=== PATIENT | male | born 1960 | race Caucasian/White ===

== ENCOUNTER 2017-11-25 17:10 | Inpatient (IN) | payer MEDICAID ==
[~2017-11-25] VITALS: Ht 180.3 cm; Wt 93.0 kg
[~2017-11-25 17:10] MED LIST: ALBU6.7H INH; AMIT10TA6 PO; ASPI-107 PO; BECL8.7A7 INH; CYCL-1 PO; DOCU-28 PO; GABA300C PO; METO-384 PO; OMEP20CA10 PO; TIZA4CAP6 PO
[2017-11-25] MEDS ORDERED: HYDROcodone/acetaminophen 5mg/325mg tablet PO ONE (20:30)
[2017-11-25] MEDS ORDERED: temazepam 15mg capsule PO PRN (21:00)
[2017-11-25 22:30] LABS: BASOPHILS % (AUTO) 0.2 % (0-1); EOSINOPHILS # (AUTO) 0.2 X10'3 (0-0.9); EOSINOPHILS % (AUTO) 2.1 % (0-6); HEMATOCRIT 44.4 % (42.0-52.0); HEMOGLOBIN 14.9 g/dl (14.0-17.9); LYMPHOCYTES # (AUTO) 1.4 X10'3 (1.1-4.8); LYMPHOCYTES % (AUTO) 15.2 % (21-51); MEAN CORPUSCULAR HEMOGLOBIN 31.1 PG (27.0-31.0); MEAN CORPUSCULAR HGB CONC 33.6 % (33.0-36.5); MEAN CORPUSCULAR VOLUME 92.6 FL (78-98); MEAN PLATELET VOLUME 7.9 FL (7.4-10.4); MONOCYTES # (AUTO) 0.7 X10'3 (0-0.9); MONOCYTES % (AUTO) 7.6 % (2-12); NEUTROPHILS # (AUTO) 6.8 X10'3 (1.8-7.7); NEUTROPHILS % (AUTO) 74.9 % (42-75); PLATELET COUNT 260 X10'3 (140-440); RED CELL DISTRIBUTION WIDTH 15.4 % (11.5-14.5); WHITE BLOOD COUNT 9.1 X10'3 (4.5-11.0)
[2017-11-25] MEDS ORDERED: RIVA10TA PO (22:31)
[2017-11-25 22:43] LABS: INR 0.9 INR; PARTIAL THROMBOPLASTIN TIME 27 SECONDS (22-32); PROTHROMBIN TIME 9.8 SECONDS (9.0-12.0)
[2017-11-25 22:47] LABS: ALANINE AMINOTRANSFERASE 29 U/L (12-78); ALBUMIN 3.8 G/DL (3.4-5.0); ALKALINE PHOSPHATASE 70 IU/L (46-116); ANION GAP 10 (8-16); ASPARTATE AMINO TRANSFERASE 35 U/L (10-37); BILIRUBIN,TOTAL 0.7 MG/DL (0.1-1.0); BLOOD UREA NITROGEN 9 MG/DL (7-18); BUN/CREATININE RATIO 8.5 (5.4-32.0); CALCIUM 7.6 MG/DL (8.5-10.1); CHLORIDE 104 MMOL/L (99-107); CREATININE 1.06 MG/DL (0.60-1.10); GLUCOSE 95 MG/DL (70-104); POTASSIUM 3.8 MMOL/L (3.5-5.1); SODIUM 140 MMOL/L (135-145); TOTAL CARBON DIOXIDE 26.1 MMOL/L (24-32); TOTAL PROTEIN 7.6 G/DL (6.4-8.2); eGFR 73 ML/MIN
[2017-11-25] MEDS ORDERED: iohexol 300mg/ml 100ml inj. ONE (23:01)
[2017-11-25] MEDS ORDERED: acetaminophen 650mg rectal suppository RC PRN (23:10)
[2017-11-25] MEDS ORDERED: mag hydrox/Alum hydrox/simeth 30ml oral suspension PO PRN (23:10)
[2017-11-25] MEDS ORDERED: acetaminophen 325mg tablet PO PRN ×2 (23:10)
[2017-11-25] MEDS ORDERED: ondansetron/PF 4mg/2ml inj IV PRN (23:10)
[2017-11-25] MEDS ORDERED: morphine 2 MG/ML inj. syringe IV PRN ×2 (23:10)
[2017-11-25] MEDS ORDERED: diphenhydrAMINE 25mg capsule PO PRN (23:10)
[2017-11-25] MEDS ORDERED: HYDROmorphone 1 mg/ml syringe IV PRN (23:10)
[2017-11-25] MEDS ORDERED: diphenhydrAMINE 50 mg/ml inj IV PRN (23:10)
[2017-11-25] MEDS ORDERED: metoclopramide 5 mg/ml inj IV PRN (23:10)
[2017-11-25] MEDS ORDERED: HYDROcodone/acetaminophen 5mg/325mg tablet PO PRN (23:10)
[2017-11-25] MEDS: nicotine 21mg patch - 24 hr TD SCH (23:10)
[2017-11-25] MEDS ORDERED: magnesium hydroxide 30ml (MOM) UD suspension PO PRN (23:10)
[2017-11-25] MEDS ORDERED: bisacodyl 10mg suppository rectal RC PRN (23:10)
[2017-11-25] MEDS ORDERED: nicotine 14mg patch - 24hr TD ONE (23:35)
[2017-11-25] MEDS: gabapentin 300mg capsule PO SCH (23:51)
[2017-11-25] MEDS: normal saline 1000ml 1,000 ML IV SCH (23:52)
[2017-11-25] MEDS: HYDROmorphone 1 mg/ml syringe IV PRN (23:52)
[2017-11-25 23:53] LABS: MAGNESIUM 2.1 MG/DL (1.5-2.4)
[2017-11-26 00:35] LABS: URINE AMPHETAMINE SCREEN NEGATIVE (Neg); URINE BARBITUATE SCREEN NEGATIVE (Neg); URINE BENZODIAZEPINES SCREEN NEGATIVE (Neg); URINE CANNABINOID SCREEN POSITIVE (Neg); URINE COCAINE SCREEN NEGATIVE (Neg); URINE METHADONE SCREEN NEGATIVE (Neg); URINE OPIATE SCREEN POSITIVE (Neg); URINE PHENCYCLIDINE SCREEN NEGATIVE (Neg)
[2017-11-26] MEDS: albuterol 2.5 MG/3 ML nebule NEB SCH ×4 (02:45→20:47)
[2017-11-26] MEDS: HYDROmorphone 1 mg/ml syringe IV PRN (05:40)
[2017-11-26 07:09] LABS: BASOPHILS % (AUTO) 0.2 % (0-1); EOSINOPHILS # (AUTO) 0.3 X10'3 (0-0.9); EOSINOPHILS % (AUTO) 3.2 % (0-6); HEMATOCRIT 37.7 % (42.0-52.0); HEMOGLOBIN 12.8 g/dl (14.0-17.9); LYMPHOCYTES # (AUTO) 1.2 X10'3 (1.1-4.8); LYMPHOCYTES % (AUTO) 14.3 % (21-51); MEAN CORPUSCULAR HEMOGLOBIN 31.7 PG (27.0-31.0); MEAN CORPUSCULAR HGB CONC 34.1 % (33.0-36.5); MEAN CORPUSCULAR VOLUME 93.2 FL (78-98); MEAN PLATELET VOLUME 7.5 FL (7.4-10.4); MONOCYTES # (AUTO) 0.7 X10'3 (0-0.9); MONOCYTES % (AUTO) 9.1 % (2-12); NEUTROPHILS % (AUTO) 73.2 % (42-75); PLATELET COUNT 247 X10'3 (140-440); RED BLOOD COUNT 4.04 X10'6 (4.70-6.10); RED CELL DISTRIBUTION WIDTH 15.4 % (11.5-14.5); WHITE BLOOD COUNT 8.2 X10'3 (4.5-11.0)
[2017-11-26 07:37] LABS: ALANINE AMINOTRANSFERASE 25 U/L (12-78); ALBUMIN 3.1 G/DL (3.4-5.0); ALBUMIN/GLOBULIN RATIO 0.9 (1.1-1.5); ALKALINE PHOSPHATASE 59 IU/L (46-116); ANION GAP 7 (8-16); ASPARTATE AMINO TRANSFERASE 27 U/L (10-37); BILIRUBIN,TOTAL 0.7 MG/DL (0.1-1.0); BLOOD UREA NITROGEN 7 MG/DL (7-18); BUN/CREATININE RATIO 6.9 (5.4-32.0); CHLORIDE 105 MMOL/L (99-107); CREATININE 1.02 MG/DL (0.60-1.10); GLUCOSE 94 MG/DL (70-104); POTASSIUM 3.8 MMOL/L (3.5-5.1); SODIUM 141 MMOL/L (135-145); TOTAL CARBON DIOXIDE 28.9 MMOL/L (24-32); TOTAL PROTEIN 6.5 G/DL (6.4-8.2); eGFR 76 ML/MIN
[2017-11-26] MEDS: BUDESONIDE 0.25 MG/2 ML AMPUL.NEB IH SCH ×2 (08:22→20:47)
[2017-11-26] MEDS: nicotine 21mg patch - 24 hr TD SCH (09:49)
[2017-11-26] MEDS: pantoprazole 40mg Tablet.DR PO SCH (09:50)
[2017-11-26] MEDS: cyclobenzaprine 10mg tablet PO PRN ×2 (09:50→20:00)
[2017-11-26] MEDS: docusate sod 100mg capsule PO SCH ×2 (09:50→20:00)
[2017-11-26] MEDS: metoprolol succinate 25mg (24-HOUR) SR. Tablet PO SCH (09:50)
[2017-11-26] MEDS: gabapentin 300mg capsule PO SCH ×2 (09:51→09:52)
[2017-11-26] MEDS: normal saline 1000ml 1,000 ML IV SCH ×2 (10:00→20:00)
[2017-11-26] MEDS: HYDROcodone/acetaminophen 10/325mg tab PO PRN ×3 (11:29→20:00)
[2017-11-26 15:30] VITALS: BP 138/89
[2017-11-26 18:00] VITALS: BP 154/99
[2017-11-26] MEDS: amitriptyline 10mg tablet PO SCH (20:00)
[2017-11-26 22:00] VITALS: BP 127/85
[2017-11-27] MEDS: albuterol 2.5 MG/3 ML nebule NEB SCH ×4 (03:02→20:04)
[2017-11-27] MEDS: HYDROcodone/acetaminophen 10/325mg tab PO PRN ×5 (03:17→21:36)
[2017-11-27] MEDS: gabapentin 300mg capsule PO SCH ×3 (03:17→17:18)
[2017-11-27 05:00] VITALS: BP 123/62
[2017-11-27 05:17] LABS: BASOPHILS % (AUTO) 0.1 % (0-1); EOSINOPHILS # (AUTO) 0.3 X10'3 (0-0.9); EOSINOPHILS % (AUTO) 3.5 % (0-6); HEMATOCRIT 34.5 % (42.0-52.0); LYMPHOCYTES # (AUTO) 1.4 X10'3 (1.1-4.8); LYMPHOCYTES % (AUTO) 15.8 % (21-51); MEAN CORPUSCULAR HEMOGLOBIN 31.7 PG (27.0-31.0); MEAN CORPUSCULAR HGB CONC 34.9 % (33.0-36.5); MEAN CORPUSCULAR VOLUME 90.8 FL (78-98); MEAN PLATELET VOLUME 7.4 FL (7.4-10.4); MONOCYTES # (AUTO) 0.7 X10'3 (0-0.9); MONOCYTES % (AUTO) 8.3 % (2-12); NEUTROPHILS # (AUTO) 6.3 X10'3 (1.8-7.7); NEUTROPHILS % (AUTO) 72.3 % (42-75); PLATELET COUNT 234 X10'3 (140-440); RED BLOOD COUNT 3.79 X10'6 (4.70-6.10); RED CELL DISTRIBUTION WIDTH 15.2 % (11.5-14.5); WHITE BLOOD COUNT 8.7 X10'3 (4.5-11.0)
[2017-11-27] MEDS: normal saline 1000ml 1,000 ML IV SCH ×2 (05:29→15:07)
[2017-11-27 06:05] LABS: ALANINE AMINOTRANSFERASE 28 U/L (12-78); ALBUMIN 2.8 G/DL (3.4-5.0); ALBUMIN/GLOBULIN RATIO 0.9 (1.1-1.5); ALKALINE PHOSPHATASE 52 IU/L (46-116); ANION GAP 10 (8-16); ASPARTATE AMINO TRANSFERASE 24 U/L (10-37); BILIRUBIN,TOTAL 0.4 MG/DL (0.1-1.0); BLOOD UREA NITROGEN 7 MG/DL (7-18); BUN/CREATININE RATIO 7.7 (5.4-32.0); CALCIUM 6.7 MG/DL (8.5-10.1); CHLORIDE 104 MMOL/L (99-107); CREATININE 0.91 MG/DL (0.60-1.10); GLUCOSE 102 MG/DL (70-104); POTASSIUM 3.3 MMOL/L (3.5-5.1); SODIUM 141 MMOL/L (135-145); TOTAL CARBON DIOXIDE 27.3 MMOL/L (24-32); TOTAL PROTEIN 5.9 G/DL (6.4-8.2); eGFR 86 ML/MIN
[2017-11-27] MEDS: docusate sod 100mg capsule PO SCH ×2 (07:36→21:36)
[2017-11-27] MEDS: pantoprazole 40mg Tablet.DR PO SCH (07:36)
[2017-11-27] MEDS: metoprolol succinate 25mg (24-HOUR) SR. Tablet PO SCH (07:36)
[2017-11-27] MEDS: nicotine 21mg patch - 24 hr TD SCH (07:37)
[2017-11-27] MEDS: BUDESONIDE 0.25 MG/2 ML AMPUL.NEB IH SCH ×2 (08:31→20:05)
[2017-11-27 10:00] VITALS: BP 141/88
[2017-11-27] MEDS: baclofen 10mg tablet PO PRN ×2 (14:10→18:47)
[2017-11-27 18:00] VITALS: BP 142/91
[2017-11-27] MEDS: amitriptyline 10mg tablet PO SCH (21:36)
[2017-11-27] MEDS: cyclobenzaprine 10mg tablet PO PRN (21:36)
[2017-11-27 22:00] VITALS: BP 111/72
[2017-11-28] MEDS: normal saline 1000ml 1,000 ML IV SCH ×2 (00:16→11:07)
[2017-11-28] MEDS: gabapentin 300mg capsule PO SCH ×2 (00:16→08:43)
[2017-11-28] MEDS: albuterol 2.5 MG/3 ML nebule NEB SCH ×2 (02:11→07:48)
[2017-11-28 06:00] VITALS: BP 133/86
[2017-11-28 06:59] LABS: BASOPHILS % (AUTO) 0.1 % (0-1); EOSINOPHILS # (AUTO) 0.3 X10'3 (0-0.9); EOSINOPHILS % (AUTO) 4.5 % (0-6); HEMATOCRIT 36.3 % (42.0-52.0); HEMOGLOBIN 12.5 g/dl (14.0-17.9); LYMPHOCYTES # (AUTO) 1.5 X10'3 (1.1-4.8); LYMPHOCYTES % (AUTO) 21.3 % (21-51); MEAN CORPUSCULAR HEMOGLOBIN 31.8 PG (27.0-31.0); MEAN CORPUSCULAR HGB CONC 34.4 % (33.0-36.5); MEAN CORPUSCULAR VOLUME 92.4 FL (78-98); MEAN PLATELET VOLUME 7.5 FL (7.4-10.4); MONOCYTES # (AUTO) 0.5 X10'3 (0-0.9); MONOCYTES % (AUTO) 7.8 % (2-12); NEUTROPHILS # (AUTO) 4.6 X10'3 (1.8-7.7); NEUTROPHILS % (AUTO) 66.3 % (42-75); PLATELET COUNT 270 X10'3 (140-440); RED BLOOD COUNT 3.93 X10'6 (4.70-6.10); RED CELL DISTRIBUTION WIDTH 15.2 % (11.5-14.5); WHITE BLOOD COUNT 6.9 X10'3 (4.5-11.0)
[2017-11-28 07:17] LABS: ALANINE AMINOTRANSFERASE 21 U/L (12-78); ALBUMIN 2.8 G/DL (3.4-5.0); ALBUMIN/GLOBULIN RATIO 0.8 (1.1-1.5); ALKALINE PHOSPHATASE 47 IU/L (46-116); ANION GAP 7 (8-16); ASPARTATE AMINO TRANSFERASE 18 U/L (10-37); BILIRUBIN,TOTAL 0.4 MG/DL (0.1-1.0); BLOOD UREA NITROGEN 9 MG/DL (7-18); BUN/CREATININE RATIO 9.9 (5.4-32.0); CALCIUM 7.5 MG/DL (8.5-10.1); CHLORIDE 103 MMOL/L (99-107); CREATININE 0.91 MG/DL (0.60-1.10); GLUCOSE 91 MG/DL (70-104); POTASSIUM 3.7 MMOL/L (3.5-5.1); SODIUM 141 MMOL/L (135-145); TOTAL CARBON DIOXIDE 31.1 MMOL/L (24-32); TOTAL PROTEIN 6.1 G/DL (6.4-8.2); eGFR 86 ML/MIN
[2017-11-28] MEDS: BUDESONIDE 0.25 MG/2 ML AMPUL.NEB IH SCH (07:48)
[2017-11-28] MEDS: pantoprazole 40mg Tablet.DR PO SCH (08:43)
[2017-11-28] MEDS: nicotine 21mg patch - 24 hr TD SCH (08:43)
[2017-11-28] MEDS: cyclobenzaprine 10mg tablet PO PRN (08:43)
[2017-11-28] MEDS: docusate sod 100mg capsule PO SCH (08:43)
[2017-11-28] MEDS: metoprolol succinate 25mg (24-HOUR) SR. Tablet PO SCH (08:43)
[2017-11-28] MEDS: HYDROcodone/acetaminophen 10/325mg tab PO PRN ×2 (08:45→12:54)
[2017-11-28] MEDS ORDERED: COL100C PO (10:30)
[2017-11-28] MEDS ORDERED: BAC10T PO (10:30)
[2017-11-28] MEDS ORDERED: HYDR-3972 PO (10:30)
== END 2017-11-28 13:15 | disposition home or self-care (01) | DRG 135 ==
LOC: ER 17:11 → ED HOLD 23:07 → ORTHO 4S 11-26 15:33
PROVIDERS: ADMIT Family Medicine; ATTEND Internal Medicine
PROC: BW251ZZ Computerized Tomography (CT Scan) of Chest, Abdomen and Pelvis using Low Osmolar Contrast (ICD-10-PCS; principal; 2017-11-25)
DX: S27.1XXA Traumatic hemothorax, initial encounter (principal); S22.079A Unspecified fracture of T9-T10 vertebra, initial encounter for closed fracture; S09.90XA Unspecified injury of head, initial encounter; G62.9 Polyneuropathy, unspecified; I48.0 Paroxysmal atrial fibrillation; S22.41XA Multiple fractures of ribs, right side, initial encounter for closed fracture; F12.10 Cannabis abuse, uncomplicated; G47.00 Insomnia, unspecified; Y04.2XXA Assault by strike against or bumped into by another person, initial encounter; I10 Essential (primary) hypertension; I25.10 Atherosclerotic heart disease of native coronary artery without angina pectoris; M54.5 Low back pain; S10.93XA Contusion of unspecified part of neck, initial encounter; G89.29 Other chronic pain; T79.7XXA Traumatic subcutaneous emphysema, initial encounter; Z79.01 Long term (current) use of anticoagulants; Z79.82 Long term (current) use of aspirin; Z87.891 Personal history of nicotine dependence; Z79.899 Other long term (current) drug therapy; Y93.89 Activity, other specified; Y92.89 Other specified places as the place of occurrence of the external cause; Y99.8 Other external cause status
CPT/HCPCS: 36415; 70450; 71045; 71046; 71260; 72100; 72125; 73130; 74177; 80053; 80305; 83735; 83880; 85025; 85610; 85730; 86885; 86900; 86901; 87070; 94640; 94760; 99285; J1170; J2405; J7030; Q9967

== ENCOUNTER 2019-06-30 15:46 | Emergency (ER) | payer MEDICAID ==
[~2019-06-30] VITALS: Ht 177.8 cm; Wt 81.8 kg
[~2019-06-30 15:46] MED LIST changes: -ALBU6.7H INH; +ALBU6.7H9 INH; +BAC10T PO; +COL100C PO; -DOCU-28 PO; +HYDR-3972 PO; -OMEP20CA10 PO; +OMEP20CA15 PO; +RIVA10TA PO; -TIZA4CAP6 PO
[2019-06-30 15:55] VITALS: BP 129/88
--- NOTE | 2019-06-30 16:10 | NUR ---
Seen and assessed by provider.
== END 2019-06-30 16:13 ==
LOC: ER 15:46
DX: F10.129 Alcohol abuse with intoxication, unspecified (principal); R07.9 Chest pain, unspecified; F12.90 Cannabis use, unspecified, uncomplicated; G89.29 Other chronic pain; Z98.890 Other specified postprocedural states; Z79.82 Long term (current) use of aspirin; Z79.899 Other long term (current) drug therapy; V87.7XXA Person injured in collision between other specified motor vehicles (traffic), initial encounter
CPT/HCPCS: 99283

== ENCOUNTER 2021-04-09 14:17 | Emergency (ER) | payer MEDICAID ==
[~2021-04-09] VITALS: Ht 182.9 cm; Wt 90.9 kg
[2021-04-09 15:00] VITALS: BP 163/142
[2021-04-09] MEDS ORDERED: traMADol 50MG tablet PO ONE (17:50)
[2021-04-09] MEDS ORDERED: ketorolac trometh inj. 60 MG/2 ML VIAL IM ONE (17:50)
[2021-04-09] MEDS ORDERED: TRAM50TA2 PO (18:20)
== END 2021-04-09 19:29 | disposition home or self-care (01) ==
LOC: ER 14:18
DX: F10.129 Alcohol abuse with intoxication, unspecified (principal); M54.50 Low back pain, unspecified; G89.29 Other chronic pain; F12.90 Cannabis use, unspecified, uncomplicated; Z98.890 Other specified postprocedural states; Z59.00 Homelessness unspecified; Z79.82 Long term (current) use of aspirin; Z79.899 Other long term (current) drug therapy; Y90.9 Presence of alcohol in blood, level not specified
CPT/HCPCS: 96372; 99284; J1885

== ENCOUNTER 2021-05-07 17:36 | Emergency (ER) | payer MEDICAID ==
[~2021-05-07] VITALS: Ht 180.3 cm; Wt 100.0 kg
[~2021-05-07 17:36] MED LIST changes: +TRAM50TA2 PO
[2021-05-07 17:56] VITALS: BP 111/73
== END 2021-05-07 23:25 ==
LOC: ER 17:36
DX: F10.129 Alcohol abuse with intoxication, unspecified (principal); R47.81 Slurred speech; I10 Essential (primary) hypertension; G89.29 Other chronic pain; F12.90 Cannabis use, unspecified, uncomplicated; Z98.890 Other specified postprocedural states; Z59.00 Homelessness unspecified; Z79.82 Long term (current) use of aspirin; Z79.899 Other long term (current) drug therapy; Y90.9 Presence of alcohol in blood, level not specified
CPT/HCPCS: 99283

== ENCOUNTER 2021-07-17 10:47 | Emergency (ER) | payer MEDICAID, OTHER ==
[~2021-07-17] VITALS: Ht 180.3 cm; Wt 95.5 kg
[~2021-07-17 10:47] MED LIST changes: -TRAM50TA2 PO
[2021-07-17] MEDS ORDERED: oxyCODONE IR 5mg (immed. release) tablet PO ONE (11:40)
[2021-07-17 11:46] VITALS: BP 146/106
[2021-07-17 12:01] LABS: BASOPHILS % (AUTO) 0.5 % (0-1); EOSINOPHILS # (AUTO) 0.3 X10'3 (0-0.9); HEMATOCRIT 43.1 % (42.0-52.0); HEMOGLOBIN 14.3 g/dl (14.0-17.9); LYMPHOCYTES % (AUTO) 17.1 % (21-51); MEAN CORPUSCULAR HGB CONC 33.1 g/dL (33.0-36.5); MEAN CORPUSCULAR VOLUME 90.5 FL (78-98); MONOCYTES # (AUTO) 0.7 X10'3 (0-0.9); MONOCYTES % (AUTO) 12.1 % (2-12); NEUTROPHILS % (AUTO) 65.3 % (42-75); PLATELET COUNT 262 X10'3 (140-440); RED BLOOD COUNT 4.77 X10'6 (4.70-6.10); RED CELL DISTRIBUTION WIDTH 13.9 % (11.5-14.5); WHITE BLOOD COUNT 6.1 X10'3 (4.5-11.0)
== END 2021-07-17 12:47 | disposition home or self-care (01) ==
LOC: ER 10:47 → EEVIPCON 10:47 → ER 12:47
DX: K40.90 Unilateral inguinal hernia, without obstruction or gangrene, not specified as recurrent (principal); R11.0 Nausea; I10 Essential (primary) hypertension; G89.29 Other chronic pain; F12.90 Cannabis use, unspecified, uncomplicated; Z56.0 Unemployment, unspecified; Z98.890 Other specified postprocedural states; Z79.82 Long term (current) use of aspirin; Z79.899 Other long term (current) drug therapy
CPT/HCPCS: 36415; 85025; 85651; 86140; 99283

== ENCOUNTER 2023-12-28 11:55 | Emergency (ER) | payer SELFPAY ==
[~2023-12-28] VITALS: Ht 170.2 cm; Wt 82.2 kg
[~2023-12-28 11:55] MED LIST changes: +ALBU6.7H14 INH; -ALBU6.7H9 INH
[2023-12-28 12:02] VITALS: BP 180/109; PULSE 89; RESP 16; TEMP 97; O2SAT 98
== END 2023-12-28 14:27 | disposition left against medical advice (07) ==
LOC: ER 11:56
DX: L23.7 Allergic contact dermatitis due to plants, except food (principal); L02.413 Cutaneous abscess of right upper limb; Z53.21 Procedure and treatment not carried out due to patient leaving prior to being seen by health care provider

== ENCOUNTER 2024-10-27 11:53 | Emergency (ER) | payer MEDICAID ==
[~2024-10-27] VITALS: Ht 180.3 cm; Wt 57.2 kg
[~2024-10-27 11:53] MED LIST changes: -BAC10T PO; +BACL-145 PO
[2024-10-27 12:15] VITALS: BP 160/96; PULSE 89; RESP 16; TEMP 99.2; O2SAT 96
--- NOTE | 2024-10-27 12:40 | Physician Documentation ---
History of Present Illness ~ Chief Complaint: Wound Stated Complaint: WOUNDS LT ARM Time Seen by MD: 12:36 Primary Medical Doctor: Unknown HPI Patient reports to the emergency department for placement of wound dressing. Patient reports that he was seen at urgent care prior to coming here. Prescribed antibiotics he still needs to go pick them up. Patient reports that the facility that he is currently staying at requires that his wounds covered and he showed proof of having been treated for the wounds prior to him coming back. Patient is asking that we dressed his wounds and he woke up this of his antibiotic. Tetanus within 5 years?: Yes (unknown) Medication Reconciliation Allergies: Coded Allergies: No Known Allergies (Unverified , 05/30/15) Scheduled Albuterol Sulfate (Proventil Hfa), 2 PUFFS INH Q6H, (Reported) Amitriptyline Hcl (Amitriptyline Hcl), 1 TAB PO HS, (Reported) Aspirin (Aspirin Ec), 1 TAB PO DAILY, (Reported) Beclomethasone Dipropionate (Qvar 80 Mcg Inhaler), 4 PUFFS INH Q12H, (Reported) Docusate Sodium (Docusate Sodium), 100 MG PO BID Gabapentin (Neurontin), 1 CAP PO Q8H, (Reported) Metoprolol Succinate (Metoprolol Succinate), 25 MG PO DAILY, (Reported) Omeprazole (Omeprazole), 1 CAP PO DAILY, (Reported) Rivaroxaban (Xarelto), 20 MG PO HS, (Reported) Scheduled PRN Baclofen (Baclofen), 10 MG PO TID PRN for muscle spasms Cyclobenzaprine* (Cyclobenzaprine*), 1 TABLET PO Q8H PRN for muscle spasms, (Reported) Hydrocodone Bit/Acetaminophen (Hydrocodon-Acetaminophn 10-325 tablet), 1 TAB PO Q6H PRN PRN for severe pain Past Medical History Past Medical History: Arrhythmia, Hypertension, Chronic Pain, Chronic Back Pain Past Surgical History: noncontributory, orthopedic surgeries Alcohol Use: Rarely Drug Use: marijuana Lives In: Other Occupation: unemployed Review of Systems ROS As stated above in the HPI, otherwise all systems are reviewed and negative. Physical Exam Vital Signs: Temperature: 99.2, Source: Temporal, Heart Rate: 89, Respiratory Rate: 16, BP: 160/96, Pulse Oximetry: 96, Weight: 57.200 Physical Exam VITALS: Reviewed and as above. GENERAL: Alert, no apparent distress. HEENT: Normocephalic, atraumatic, PERRL, EOMI, dry mucosa, no erythema RESPIRATORY: Lungs clear, normal breath sounds, no respiratory distress. CHEST: No accessory muscle use, no retractions CV: Regular rate, rhythm, no edema, no murmur, No: JVD GI: Soft, non-tender, bowels sounds present, no rebound, guarding, or rigidity BACK: No CVA tenderness, or swelling MUSCULOSKELETAL No deformities, no edema SKIN: Warm and dry, no rash, multiple lesions patient has a left arm surrounded by erythema and edema some lesions demonstrate drainage. NEURO: Oriented x4, No motor or sensory deficit PSYCH: Normal mood and affect, no agitation Progress Results/Orders Results/Orders Vital Signs 10/27/24 12:15 Temp 99.2 Pulse 89 Resp 16 B/P (MAP) 160/96 Pulse Ox 96 Medical Decision Making Findings Patient reports to the emergency department for placement of wound dressing. Patient reports that he was seen at urgent care prior to coming here. Prescribed antibiotics he still needs to go pick them up. Patient reports that the facility that he is currently staying at requires that his wounds covered and he showed proof of having been treated for the wounds prior to him coming back. Patient is asking that we dressed his wounds and he woke up this of his a ntibiotic. Wounds evaluated antibiotics prescribed by appropriate dressings applied patient education provided to patient. We will follow up with his primary care provider. Patient will return to the emergency department if he has any worsening of his current symptoms or any additional concerning symptoms that we discussed here today i.e. fever chills increased redness increased pain hepatic spread or any other concerning symptoms. Differential Dx:Considerations: Include: Abscess, Cellulitis, Dressing change, Healing wound, Other Departure Disposition: 01 HOME / SELF CARE / HOMELESS Impression: Primary Impression: Wound Condition: Stable Discharge Instructions: Skin Abscess Additional Instructions: Patient reports to the emergency department for placement of wound dressing. Patient reports that he was seen at urgent care prior to coming here. Prescribed antibiotics he still needs to go pick them up. Patient reports that the facility that he is currently staying at requires that his wounds covered and he showed proof of having been treated for the wounds prior to him coming back. Patient is asking that we dressed his wounds and he woke up this of his antibiotic. Wounds evaluated antibiotics prescribed by appropriate dressings applied patient education provided to patient. We will follow up with his primary care provider. Patient will return to the emergency department if he has any worsening of his current symptoms or any additional concerning symptoms that we discussed here today i.e. fever chills increased redness increased pain hepatic spread or any other concerning symptoms. Referrals: NO PRIMARY CARE PROVIDER (PCP) Education Educated: Patient Educated regarding: diagnosis, treatment, need for follow up Signature Scribe Signature: AScribed for Emergency,Department by SARAH Morales . 10/27/24 12:40 Attestation: Scribed for Emergency,Department by SARAH Morales . 10/27/24 12:40 MAMIE GU Oct 27, 2024 12:40
== END 2024-10-27 12:44 | disposition home or self-care (01) ==
LOC: ER 11:54
DX: S40.922A Unspecified superficial injury of left upper arm, initial encounter (principal); I10 Essential (primary) hypertension; F12.90 Cannabis use, unspecified, uncomplicated; Z79.82 Long term (current) use of aspirin; Z79.899 Other long term (current) drug therapy; Z56.0 Unemployment, unspecified; X58.XXXA Exposure to other specified factors, initial encounter; Y93.89 Activity, other specified; Y92.89 Other specified places as the place of occurrence of the external cause; Y99.8 Other external cause status
CPT/HCPCS: 99282